=== PATIENT | female | born 1960 | race Caucasian/White ===

== ENCOUNTER 2018-04-10 15:58 | Inpatient (IN) | payer OTHER ==
[2018-04-10 19:18] VITALS: BMI 21.2
--- NOTE | 2018-04-10 20:28 | HP ---
CIWA Score - CIWA Score Nausea/Vomitin Muscle Tremors: 4-Moderate,w/Arms Extend Anxiety: 4-Mod. Anxious/Guarded Agitation: 4-Moderately Restless Paroxysmal Sweats: 3 Orientation: 1-Uncertain about Date Tacttile Disturbances: 0-None Auditory Disturbances: 0-None Visual Disturbances: 0-None Headache: 2-Mild CIWA-Ar Total Score: 21 Admission ROS BHS - HPI Chief Complaint: C/O WITHDRAWAL SX'S RELATED TO ALCOHOL. SEEKING DETOX Allergies/Adverse Reactions: Allergies Allergy/AdvReac Type Severity Reaction Status Date / Time No Known Allergies Allergy Verified 04/10/18 20:28 History of Present Illness: 58 Y.O FEMALE WITH LONG HX/O ALCOHOLISM HERE FOR DETOX. CLIENT IS KNOWN TO PREVIOUS DETOX. LAST 2 MONTHS AGO AT [facility]. SHE CURRENTLY ATTENDS OUTPATIENT AT [facility] WHO REFERRED HER FOR DETOX. DENIES ANY SIGNIFICANT PERIOD OF CLEAN TIME. DNEIS HX/O SEZURES BUT HAS BLACKED OUT IN THE PAST. DENIES SI/HI AND A/V HALLUCINATIONS. PMHX: VARICOSE VEINS, HEPC WITH TXMENT PSYCH: PANIC, ANXIETY, DEPRESSION, BIPOLAR AND PTSD Exam Limitations: No Limitations - Ebola screening Have you traveled outside of the country in the last 21 days: No (N) Have you had contact with anyone from an Ebola affected area: No Have you been sick,other than usual withdrawal symptoms: No Do you have a fever: No - Review of Systems Constitutional: Chills, Loss of Appetite, Malaise, Night Sweats, Changes in sleep, Unintentional Wgt. Loss EENT: reports: Tinnitus, Nose Congestion Respiratory: reports: Cough Cardiac: reports: No Symptoms Reported GI: reports: Poor Appetite : reports: No Symptoms Reported Musculoskeletal: reports: No Symptoms Reported Integumentary: reports: No Symptoms Reported Neuro: reports: Other (BLACK OUTS WHEN INTOXICATED) Endocrine: reports: No Symptoms Reported Hematology: reports: No Symptoms Reported Psychiatric: reports: Agitated, Anxious, Depressed Other Systems: Reviewed and Negative Patient History - Patient Medical History Hx Anemia: No Hx Asthma: No Hx Chronic Obstructive Pulmonary Disease (COPD): No Hx Cancer: No Hx Cardiac Disorders: No Hx Congestive Heart Failure: No Hx Hypertension: No Hx Hypercholesterolemia: No Hx Pacemaker: No HX Cerebrovascular Accident: No Hx Seizures: No Hx Dementia: No Hx Diabetes: No Hx Gastrointestinal Disorders: No Hx Liver Disease: No Hx Genitourinary Disorders: No Hx Sexually Transmitted Disorders: No Hx Renal Disease (ESRD): No Hx Thyroid Disease: No Hx Human Immunodeficiency Virus (HIV): No Hx Hepatitis C: Yes (WAS TX'ED) Hx Depression: Yes Hx Suicide Attempt: Yes (HX/O LAST ATTEMPT 2007 VIA DRUG OD) Hx Bipolar Disorder: Yes Hx Schizophrenia: No Other Medical History: PTSD - Patient Surgical History Hx Orthopedic Surgery: Yes (RIGHT KNEE) Other Surgical History: VARICOSE VIENS Anesthesia Reaction: No - PPD History Previous Implant?: Yes Documented Results: Negative w/o proof Implanted On Prior [facility] Admission?: No PPD to be Administered?: Yes - Reproductive History Patient is a Female of Child Bearing Age (11 -55 yrs old): No Patient : No (NEG [facility] [place]) - Smoking Cessation Smoking history: Current every day smoker Have you smoked in the past 12 months: Yes Aproximately how many cigarettes per day: 10 Cigars Per Day: 0 Hx Chewing Tobacco Use: No Initiated information on smoking cessation: Yes 'Breaking Loose' booklet given: 04/10/18 - Substance & Tx. History Hx Alcohol Use: Yes Hx Substance Use: Yes Substance Use Type: Alcohol, Cocaine, Marijuana Hx Substance Use [facility]: Yes [facility] - Substances Abused BEER Route: Oral Frequency: Daily Amount used: 7- CANS Age of first use: 55 Date of Last Use: 04/09/18 COCAINE Route: Smoking Frequency: 1-2 times per week Amount used: 3 JOINTS Age of first use: 57 Date of Last Use: 04/08/18 THC Route: Smoking Frequency: 1-2 times per week Amount used: 3 JOINTS Age of first use: 57 Date of Last Use: 04/08/18 Family Disease History - Family Disease History Family History: Denies Admission Physical Exam BHS - Vital Signs Vital Signs: Vital Signs - 24 hr 04/10/18 19:16 Temperature 98.7 F Pulse Rate 66 Respiratory 18 Rate Blood Pressure 141/85 - Physical General Appearance: Yes: Appropriately Dressed, Mild Distress, Tremorous, Irritable, Anxious HEENTM: Yes: EOMI, Normocephalic, Normal Voice, CHUCKIE, Pharynx Normal, Nasal Congestion Respiratory: Yes: Chest Non-Tender, Lungs Clear, Normal Breath Sounds, No Respiratory Distress, No Accessory Muscle Use Neck: Yes: No masses,lesions,Nodules, Supple, Trachea in good position Breast: Yes: Breast Exam Deferred Cardiology: Yes: Regular Rhythm, Regular Rate, S1, S2 Abdominal: Yes: Normal Bowel Sounds, Non Tender, Soft, Protuberent Genitourinary: Yes: Within Normal Limits Back: Yes: Normal Inspection Musculoskeletal: Yes: full range of Motion, Gait Steady Extremities: Yes: Normal Range of Motion, Non-Tender, Tremors, Other (BLE VARICOSE VIENS/ SCARRING FROM PAST SX'S) 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: 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 NML intact, Fully Oriented, Alert, Motor Strength 5/5 Integumentary: Yes: Normal Color, Warm Lymphatic: Yes: Within Normal Limits - Diagnostic (1) Alcohol dependence with uncomplicated withdrawal Current Visit: Yes Status: Acute (2) Cannabis dependence, uncomplicated Current Visit: Yes Status: Chronic (3) Cocaine dependence, uncomplicated Current Visit: Yes Status: Chronic (4) Nicotine dependence Current Visit: Yes Status: Chronic Qualifiers: Nicotine product type: cigarettes Substance use status: uncomplicated Qualified Code(s): F17.210 - Nicotine dependence, cigarettes, uncomplicated (5) Varicose veins of both lower extremities Current Visit: Yes Status: Chronic (6) History of hepatitis C Current Visit: Yes Status: Resolved (7) Anxiety Current Visit: Yes Status: Suspected (8) Depression Current Visit: Yes Status: Suspected (9) Substance induced mood disorder Current Visit: Yes Status: Suspected Cleared for Admission [facility] - Detox or Rehab [facility] Level of Care: Medically Managed Detox Regimen/Protocol: Librium Claeared for Rehab Admission: No [facility] Breath Alcohol Content Breath Alcohol Content: 0 Urine Pregancy Test - Result Urine Test Results: Negative- NO Line Present Urine Drug Screen - Results Drug Screen Negative: No Urine Drug Screen Results: THC-Marijuana, CANDICE-Cocaine
[2018-04-10] MEDS ORDERED: MAGNESIUM HYDROX 2400MG/30ML ORAL SUSPENSION 30 ML CUP PO PRN (20:43)
[2018-04-10] MEDS ORDERED: IBUPROFEN 400 MG TABLET (FP) PO PRN (20:43)
[2018-04-10] MEDS ORDERED: chlordiazePOXIDE HCL 25 MG CAPSULE PO PRN (20:43)
[2018-04-10] MEDS ORDERED: ACETAMINOPHEN 325 MG TABLET (FP) PO PRN (20:43)
[2018-04-10] MEDS ORDERED: MENTHOL/PHENOL 1 EACH UD MM PRN (20:43)
[2018-04-10] MEDS ORDERED: LOPERAMIDE HCL 2 MG CAPSULE PO PRN (20:43)
[2018-04-10] MEDS ORDERED: MAG HYDROX/AL HYDROX/SIMETH 30 ML UNIT-DOSE CUP PO PRN (20:43)
[2018-04-10] MEDS ORDERED: NICOTINE POLACRILEX 2 MG GUM BC PRN (20:43)
[2018-04-10] MEDS ORDERED: P-EPHED 60MG/TRIPROLIDI 2.5MG TABLET PO PRN (20:43)
[2018-04-10] MEDS ORDERED: MAGNESIUM CITRATE 300 ML BOTTLE PO PRN (20:43)
[2018-04-10] MEDS ORDERED: MELATONIN 5 MG TABLETS PO PRN (22:00)
[2018-04-11] MEDS: chlordiazePOXIDE HCL 25 MG CAPSULE PO SCH ×5 (01:30→22:13)
[2018-04-11] MEDS: THIAMINE HCL 100 MG TABLET (FP) PO SCH ×2 (01:41→22:14)
--- NOTE | 2018-04-11 08:30 | CONSULT ---
[facility] Psychiatric Consult - Data Date of interview: 04/11/18 Admission source: [facility] Identifying data: This is 58 years old female, single mother of two, living with daughter family, unemployrd on SSI, SSD, with history of Bipolar disorder, history of psychiatric hospitalizations, reports Alcohol withdrawal simptoms, seeking for datox, reports abusing Cannabis, Nicotine and Cocaine as well. Substance Abuse History: Smoking history: Current every day smoker. Have you smoked in the past 12 months: Yes. Aproximately how many cigarettes per day: 10. Cigars Per Day: 0. Hx Chewing Tobacco Use: No. Initiated information on smoking cessation: Yes. 'Breaking Loose' booklet given: 04/10/18. - Substance & Tx. History. Hx Alcohol Use: Yes. Hx Substance Use: Yes. Substance Use Type : Alcohol, Cocaine, Marijuana. Hx Substance Use Treatment: Yes ([facility]). - Substances Abused. BEER. Route: Oral. Frequency: Daily. Amount used: 7- CANS. Age of first use: 55. Date of Last Use: 04/09/18. COCAINE. Route: Smoking. Frequency: 1-2 times per week. Amount used: 3 JOINTS. Age of first use: 57. Date of Last Use: 04/08/18. THC. Route: Smoking. Frequency: 1-2 times per week. Amount used: 3 JOINTS. Age of first use: 57. Date of Last Use : 04/08/18 Medical History: Varicose veins of lower extremities, HepC+ Psychiatric History: Patient reports anxiety and depression, reports to carry Bipolar Disorder, reports most recent psychiatric admission on 2007 at [facility] after suicidal attempt by OD, reports no suicidal history sinth then. Carrently taking prioer to admission: Remeron 15mg po qhs. Prozac 20mg poqd Physical/Sexual Abuse/Trauma History: Denies Additional Comment: Remeron 15mg po qhs. Prozac 20mg poqd Mental Status Exam - Mental Status Exam Alert and Oriented to: Person Cognitive Function: Fair Patient Appearance: Unkempt Mood: Apprehensive Affect: Mood Congruent Patient Behavior: Cooperative Speech Pattern: Appropriate Voice Loudness: Mildly Soft/Quiet Thought Process: Goal Oriented Thought Disorder: Being Controlled Hallucinations: Denies Suicidal Ideation: Denies Homicidal Ideation: Denies Insight/Judgement: Fair Sleep: Difficulty falling asleep Appetite: Fair Muscle strength/Tone: Mild Hypotonicity Gait/Station: Shuffling Additional Comments: Remeron 15mg po qhs. Prozac 20mg poqd Psychiatric Findings - Problem List ([place] 1, 2,3) (1) Bipolar disorder Current Visit: Yes Status: Acute (2) Alcohol dependence with uncomplicated withdrawal Current Visit: Yes Status: Acute (3) Cannabis dependence, uncomplicated Current Visit: Yes Status: Chronic (4) Cocaine dependence, uncomplicated Current Visit: Yes Status: Chronic (5) Nicotine dependence Current Visit: Yes Status: Chronic Qualifiers: Nicotine product type: cigarettes Substance use status: uncomplicated Qualified Code(s): F17.210 - Nicotine dependence, cigarettes, uncomplicated (6) Substance induced mood disorder Current Visit: Yes Status: Suspected - Initial Treatment Plan Initial Treatment Plan: Remeron 15mg po qhs. Prozac 20mg poqd
[2018-04-11 10:28] LABS: HEMATOCRIT 38.4 % (32.4-45.2); HEMOGLOBIN 13.1 GM/dL (10.7-15.3); MCH 35.1 pg (25.7-33.7); MCHC 34.2 g/dl (32.0-36.0); MEAN CELL VOLUME 102.6 fl (80-96); MEAN PLT VOLUME 9.7 fl (7.5-11.1); PLATELET COUNT 144 K/MM3 (134-434); RBC 3.74 M/mm3 (3.60-5.2); RDW 13.5 % (11.6-15.6); WHITE BLOOD COUNT 4.8 K/mm3 (4.0-10.0)
[2018-04-11] MEDS: hydrOXYzine PAMOATE 50 MG CAPSULE (FP) PO PRN (10:31)
[2018-04-11] MEDS: NICOTINE 14 MG/24 HOURS TOPICAL PATCH TD SCH (10:31)
[2018-04-11] MEDS: PRENATAL VITAMINS W/ FOLIC ACID TABLET (FP) PO SCH (10:31)
[2018-04-11] MEDS: FLUoxetine HCL 20 MG CAPSULE (FP) PO SCH (10:33)
[2018-04-11 10:42] LABS: CHLORIDE 107 mmol/L (98-107); GLUCOSE,RANDOM 76 mg/dL (74-106); POTASSIUM 3.9 mmol/L (3.5-5.1); SODIUM 142 mmol/L (136-145)
--- NOTE | 2018-04-11 10:45 | PN ---
S CIWA - CIWA Score Nausea/Vomitin Muscle Tremors: 3 Anxiety: 3 Agitation: 2 Paroxysmal Sweats: 1-Minimal Palms Moist Orientation: 0-Oriented Tacttile Disturbances: 1-Very Mild Itch/Numbness Auditory Disturbances: 1-Very Mild Visual Disturbances: 0-None Headache: 2-Mild CIWA-Ar Total Score: 16 S Progress Note (SOAP) Subjective: alert,irritable,anxious,interrupted sleep,tremor Objective: 04/11/18 10:42 Vital Signs Temperature 96.6 F L 04/11/18 09:33 Pulse Rate 69 04/11/18 09:33 Respiratory Rate 16 04/11/18 09:33 Blood Pressure 146/67 04/11/18 09:33 O2 Sat by Pulse Oximetry (%) ekg nsr with sinus arrhythmia qt 404/460 Laboratory Last Values WBC 4.8 K/mm3 (4.0-10.0) 04/11/18 07:30 RBC 3.74 M/mm3 (3.60-5.2) 04/11/18 07:30 Hgb 13.1 GM/dL (10.7-15.3) 04/11/18 07:30 Hct 38.4 % (32.4-45.2) 04/11/18 07:30 MCV 102.6 fl (80-96) H 04/11/18 07:30 MCH 35.1 pg (25.7-33.7) H 04/11/18 07:30 MCHC 34.2 g/dl (32.0-36.0) 04/11/18 07:30 RDW 13.5 % (11.6-15.6) 04/11/18 07:30 Plt Count 144 K/MM3 (134-434) 04/11/18 07:30 MPV 9.7 fl (7.5-11.1) 04/11/18 07:30 lab pending Assessment: 04/11/18 10:45 withdrawal symptom Plan: continue detox
[2018-04-11 10:47] LABS: ALBUMIN 3.4 g/dl (3.4-5.0); ALK PHOS 102 U/L (45-117); ANION GAP 5 (8-16); BILIRUBIN,TOTAL 0.4 mg/dL (0.2-1.0); BLOOD UREA NITROGEN 9 mg/dL (7-18); CALCIUM 8.7 mg/dL (8.5-10.1); CO2 30 mmol/L (21-32); CREATININE 0.8 mg/dL (0.55-1.02); SGOT/AST 33 U/L (15-37); SGPT/ALT 26 U/L (12-78); TOT PROT 6.9 g/dl (6.4-8.2)
--- NOTE | 2018-04-11 11:54 | EKG ---
Test Reason : Blood Pressure : / mmHG Vent. Rate : 078 BPM Atrial Rate : 078 BPM P-R Int : 138 ms QRS Dur : 086 ms QT Int : 404 ms P-R-T Axes : 073 073 059 degrees QTc Int : 460 ms NORMAL SINUS RHYTHM WITH SINUS ARRHYTHMIA NORMAL ECG NO PREVIOUS ECGS AVAILABLE Confirmed by RANJANA ADAMES MD ([id number]) on 04/11/2018 11:54:02 AM Referred By: Confirmed By:RANJANA ADAMES MD
[2018-04-11] MEDS: MIRTAZAPINE 15 MG TABLET (FP) PO SCH (22:13)
[2018-04-12] MEDS: chlordiazePOXIDE HCL 25 MG CAPSULE PO SCH ×3 (05:23→17:30)
--- NOTE | 2018-04-12 09:05 | PN ---
S CIWA - CIWA Score Nausea/Vomitin Muscle Tremors: 3 Anxiety: 3 Agitation: 2 Paroxysmal Sweats: 1-Minimal Palms Moist Orientation: 0-Oriented Tacttile Disturbances: 1-Very Mild Itch/Numbness Auditory Disturbances: 1-Very Mild Visual Disturbances: 1-Very Mild Sensitivity Headache: 2-Mild CIWA-Ar Total Score: 17 S Progress Note (SOAP) Subjective: alert,irritable,anxious,interrupted sleep,tremor Objective: 04/12/18 09:03 Vital Signs Temperature 97.7 F 04/12/18 06:00 Pulse Rate 64 04/12/18 06:00 Respiratory Rate 20 04/12/18 06:00 Blood Pressure 119/70 04/12/18 06:00 O2 Sat by Pulse Oximetry (%) 04/12/18 09:04 Laboratory Last Values WBC 4.8 K/mm3 (4.0-10.0) 04/11/18 07:30 RBC 3.74 M/mm3 (3.60-5.2) 04/11/18 07:30 Hgb 13.1 GM/dL (10.7-15.3) 04/11/18 07:30 Hct 38.4 % (32.4-45.2) 04/11/18 07:30 MCV 102.6 fl (80-96) H 04/11/18 07:30 MCH 35.1 pg (25.7-33.7) H 04/11/18 07:30 MCHC 34.2 g/dl (32.0-36.0) 04/11/18 07:30 RDW 13.5 % (11.6-15.6) 04/11/18 07:30 Plt Count 144 K/MM3 (134-434) 04/11/18 07:30 MPV 9.7 fl (7.5-11.1) 04/11/18 07:30 Sodium 142 mmol/L (136-145) 04/11/18 07:30 Potassium 3.9 mmol/L (3.5-5.1) 04/11/18 07:30 Chloride 107 mmol/L (98-107) 04/11/18 07:30 Carbon Dioxide 30 mmol/L (21-32) 04/11/18 07:30 Anion Gap 5 (8-16) L 06/06/18 07:30 BUN 9 mg/dL (7-18) 04/11/18 07:30 Creatinine 0.8 mg/dL (0.55-1.02) 04/11/18 07:30 Creat Clearance w eGFR > 60 (>60) 04/11/18 07:30 Random Glucose 76 mg/dL (74-106) 04/11/18 07:30 Calcium 8.7 mg/dL (8.5-10.1) 04/11/18 07:30 Total Bilirubin 0.4 mg/dL (0.2-1.0) 04/11/18 07:30 AST 33 U/L (15-37) 04/11/18 07:30 ALT 26 U/L (12-78) 04/11/18 07:30 Alkaline Phosphatase 102 U/L (45-117) 04/11/18 07:30 Total Protein 6.9 g/dl (6.4-8.2) 04/11/18 07:30 Albumin 3.4 g/dl (3.4-5.0) 04/11/18 07:30 Urine Color Cancelled 04/11/18 14:00 Urine Appearance Cancelled 04/11/18 14:00 Urine pH Cancelled 04/11/18 14:00 Ur Specific [place] Cancelled 04/11/18 14:00 Urine Protein Cancelled 04/11/18 14:00 Urine Glucose (UA) Cancelled 04/11/18 14:00 Urine Ketones Cancelled 04/11/18 14:00 Urine Blood Cancelled 04/11/18 14:00 Urine Nitrite Cancelled 04/11/18 14:00 Urine Bilirubin Cancelled 04/11/18 14:00 Urine Urobilinogen Cancelled 04/11/18 14:00 Ur Leukocyte Esterase Cancelled 04/11/18 14:00 RPR Titer Nonreactive (NONREACTIVE) 04/11/18 07:30 Assessment: 04/12/18 09:04 withdrawal symptom Plan: continue detox
[2018-04-12] MEDS: PRENATAL VITAMINS W/ FOLIC ACID TABLET (FP) PO SCH (10:07)
[2018-04-12] MEDS: FLUoxetine HCL 20 MG CAPSULE (FP) PO SCH (10:07)
[2018-04-12] MEDS: hydrOXYzine PAMOATE 50 MG CAPSULE (FP) PO PRN (10:07)
[2018-04-12] MEDS: guaiFENesin/D-METHORPHAN HB 10 ML UNIT-DOSE CUPS PO PRN (10:08)
[2018-04-12] MEDS: NICOTINE 14 MG/24 HOURS TOPICAL PATCH TD SCH (10:08)
[2018-04-12] MEDS: chlordiazePOXIDE 5 MG CAPSULE PO SCH (22:08)
[2018-04-12] MEDS: THIAMINE HCL 100 MG TABLET (FP) PO SCH (22:08)
[2018-04-12] MEDS: MIRTAZAPINE 15 MG TABLET (FP) PO SCH (22:08)
[2018-04-13] MEDS: chlordiazePOXIDE 5 MG CAPSULE PO SCH ×3 (05:10→17:37)
[2018-04-13] MEDS: PRENATAL VITAMINS W/ FOLIC ACID TABLET (FP) PO SCH (10:27)
[2018-04-13] MEDS: FLUoxetine HCL 20 MG CAPSULE (FP) PO SCH (10:27)
[2018-04-13] MEDS: NICOTINE 14 MG/24 HOURS TOPICAL PATCH TD SCH (10:28)
[2018-04-13] MEDS: guaiFENesin/D-METHORPHAN HB 10 ML UNIT-DOSE CUPS PO PRN (10:29)
--- NOTE | 2018-04-13 11:27 | PN ---
S Progress Note (SOAP) Subjective: alert,irritable,anxious,interrupted sleep, Objective: 04/13/18 11:26 Vital Signs Temperature 96.3 F L 04/13/18 11:23 Pulse Rate 56 L 04/13/18 11:23 Respiratory Rate 18 04/13/18 11:23 Blood Pressure 110/66 04/13/18 11:23 O2 Sat by Pulse Oximetry (%) Assessment: 04/13/18 11:26 withdrawal symptom Plan: continue detox,discharge in am
[2018-04-13] MEDS: chlordiazePOXIDE HCL 10 MG CAPSULE PO SCH (22:09)
[2018-04-13] MEDS: MIRTAZAPINE 15 MG TABLET (FP) PO SCH (22:09)
[2018-04-13] MEDS: THIAMINE HCL 100 MG TABLET (FP) PO SCH (22:09)
[2018-04-14] MEDS: chlordiazePOXIDE HCL 10 MG CAPSULE PO SCH (05:18)
[2018-04-14 06:37] VITALS: BP 100/67; PULSE 59; TEMP 97.2
--- NOTE | 2018-04-14 08:58 | PN ---
S Progress Note (SOAP) Subjective: alert,no complaint Objective: 04/14/18 08:56 Vital Signs Temperature 97.2 F L 04/14/18 06:37 Pulse Rate 59 L 04/14/18 06:37 Respiratory Rate 18 04/14/18 06:37 Blood Pressure 100/67 04/14/18 06:37 O2 Sat by Pulse Oximetry (%) Assessment: 04/14/18 08:56 detox completed,no withdrawal symptom Plan: discharge today,follow up with after care program as arrangement
--- NOTE | 2018-04-14 08:59 | DS ---
[facility] Detox Discharge Summary Admission Date: 04/10/18 Discharge Date: 04/14/18 - History Present History: Alcohol Dependence, Cannabis Dependence, Cocaine Dependence Additional Comments: follow up with after care program as arrangement Pertinent Past History: hepatitis c nicotine dependence anxiety and depression - Physical Exam Results Vital Signs: Vital Signs Temperature 97.2 F L 04/14/18 06:37 Pulse Rate 59 L 04/14/18 06:37 Respiratory Rate 18 04/14/18 06:37 Blood Pressure 100/67 04/14/18 06:37 O2 Sat by Pulse Oximetry (%) Pertinent Admission Physical Exam Findings: withdrawal signs and symptom Vital Signs Temperature 97.2 F L 04/14/18 06:37 Pulse Rate 59 L 04/14/18 06:37 Respiratory Rate 18 04/14/18 06:37 Blood Pressure 100/67 04/14/18 06:37 O2 Sat by Pulse Oximetry (%) Laboratory Last Values WBC 4.8 K/mm3 (4.0-10.0) 04/11/18 07:30 RBC 3.74 M/mm3 (3.60-5.2) 04/11/18 07:30 Hgb 13.1 GM/dL (10.7-15.3) 04/11/18 07:30 Hct 38.4 % (32.4-45.2) 04/11/18 07:30 MCV 102.6 fl (80-96) H 04/11/18 07:30 MCH 35.1 pg (25.7-33.7) H 04/11/18 07:30 MCHC 34.2 g/dl (32.0-36.0) 04/11/18 07:30 RDW 13.5 % (11.6-15.6) 04/11/18 07:30 Plt Count 144 K/MM3 (134-434) 04/11/18 07:30 MPV 9.7 fl (7.5-11.1) 04/11/18 07:30 Sodium 142 mmol/L (136-145) 04/11/18 07:30 Potassium 3.9 mmol/L (3.5-5.1) 04/11/18 07:30 Chloride 107 mmol/L (98-107) 04/11/18 07:30 Carbon Dioxide 30 mmol/L (21-32) 06/06/18 07:30 Anion Gap 5 (8-16) L 04/11/18 07:30 BUN 9 mg/dL (7-18) 04/11/18 07:30 Creatinine 0.8 mg/dL (0.55-1.02) 04/11/18 07:30 Creat Clearance w eGFR > 60 (>60) 04/11/18 07:30 Random Glucose 76 mg/dL (74-106) 04/11/18 07:30 Calcium 8.7 mg/dL (8.5-10.1) 04/11/18 07:30 Total Bilirubin 0.4 mg/dL (0.2-1.0) 04/11/18 07:30 AST 33 U/L (15-37) 04/11/18 07:30 ALT 26 U/L (12-78) 04/11/18 07:30 Alkaline Phosphatase 102 U/L (45-117) 04/11/18 07:30 Total Protein 6.9 g/dl (6.4-8.2) 04/11/18 07:30 Albumin 3.4 g/dl (3.4-5.0) 04/11/18 07:30 Urine Color Cancelled 04/11/18 14:00 Urine Appearance Cancelled 04/11/18 14:00 Urine pH Cancelled 04/11/18 14:00 Ur Specific [place] Cancelled 04/11/18 14:00 Urine Protein Cancelled 04/11/18 14:00 Urine Glucose (UA) Cancelled 04/11/18 14:00 Urine Ketones Cancelled 04/11/18 14:00 Urine Blood Cancelled 04/11/18 14:00 Urine Nitrite Cancelled 04/11/18 14:00 Urine Bilirubin Cancelled 04/11/18 14:00 Urine Urobilinogen Cancelled 04/11/18 14:00 Ur Leukocyte Esterase Cancelled 04/11/18 14:00 RPR Titer Nonreactive (NONREACTIVE) 04/11/18 07:30 - Treatment Hospital Course: Detox Protocol Followed, Detoxed Safely, Responded well, Discharged Condition Good, Rehab Referral Accepted Patient [facility] Accept[facility] - Medication Discharge Medications: Ambulatory Orders Gabapentin [Neurontin -] 800 mg PO TID 04/10/18 Naltrexone HCl [Revia -] 50 mg PO DAILY 04/10/18 Fluoxetine HCl [Prozac -] 20 mg PO DAILY #30 capsule 04/11/18 Mirtazapine [Remeron -] 15 mg PO HS #30 tablet 04/11/18 - Diagnosis (1) Alcohol dependence with uncomplicated withdrawal Current Visit: Yes Status: Acute (2) Cannabis dependence, uncomplicated Current Visit: Yes Status: Chronic (3) Cocaine dependence, uncomplicated Current Visit: Yes Status: Chronic (4) Nicotine dependence Current Visit: Yes Status: Chronic Qualifiers: Nicotine product type: cigarettes Substance use status: uncomplicated Qualified Code(s): F17.210 - Nicotine dependence, cigarettes, uncomplicated (5) Varicose veins of both lower extremities Current Visit: Yes Status: Chronic (6) Anxiety Current Visit: Yes Status: Suspected (7) Depression Current Visit: Yes Status: Suspected (8) History of hepatitis C Current Visit: Yes Status: Resolved - AMA Did Patient Leave Against Medical Advice: No
== END 2018-04-14 09:04 | disposition home or self-care (01) | DRG 897 ==
LOC: YASAS 15:58 → Y6N 21:01
PROVIDERS: ADMIT Surgery; ATTEND Surgery
PROC: HZ2ZZZZ Detoxification Services for Substance Abuse Treatment (ICD-10-PCS; principal; 2018-04-10)
DX: F10.230 Alcohol dependence with withdrawal, uncomplicated (principal); F14.20 Cocaine dependence, uncomplicated; F12.20 Cannabis dependence, uncomplicated; F17.210 Nicotine dependence, cigarettes, uncomplicated; F41.9 Anxiety disorder, unspecified; F32.9 Major depressive disorder, single episode, unspecified; F31.9 Bipolar disorder, unspecified; F19.24 Other psychoactive substance dependence with psychoactive substance-induced mood disorder; B18.2 Chronic viral hepatitis C; I83.93 Asymptomatic varicose veins of bilateral lower extremities; Z91.5 Personal history of self-harm
CPT/HCPCS: 36415; 80053; 85027; 86593; 93005; 93010